=== PATIENT | female | born 1990 | race Caucasian/White ===

== ENCOUNTER 2024-11-11 12:02 | Outpatient (CLI) | payer BC, SELFPAY ==
--- NOTE | ~2024-11-11 | US_ITS ---
Pelvic ultrasound. Clinical History: First trimester , abnormal findings of blood chemistry Technique: Realtime transabdominal and transvaginal scanning of the pelvis was performed. Color flow Doppler and Doppler spectral analysis were performed. Findings: The uterus is anteverted, and contains an intrauterine gestation. [place]-rump length of 3.2 cm corresponds to an estimated gestational age of 10 weeks 1 day. heart rate is 185 bpm. The right ovary measures 3.2 x 1.8 x 4.4 cm. No significant right ovarian or adnexal mass is seen. The left ovary measures 2.7 x 1.6 x 2.3 cm. No significant left ovarian or adnexal mass is seen. There is no evidence of free fluid in the cul de sac. Impression: Live intrauterine gestation, with estimated gestational age of 10 weeks 1 day. heart rate is 18 5 bpm. [facility]ographic [facility] is 06/09/2025. Reviewed, dictated and finalized at [facility]. Impression: Live intrauterine gestation, with estimated gestational age of 10 weeks 1 day. heart rate is 185 bpm. Sonographic [facility] is 06/09/2025.
== END 2024-11-12 10:08 | disposition home or self-care (01) ==
PROVIDERS: PCP Obstetrics & Gynecology; Visit Provider Obstetrics & Gynecology
DX: O36.80X0 Pregnancy with inconclusive fetal viability, not applicable or unspecified (principal); R79.89 Other specified abnormal findings of blood chemistry; Z3A.00 Weeks of gestation of pregnancy not specified
CPT/HCPCS: 76801; 76817